=== PATIENT | female | born 2005 | race African-American/Black ===

== ENCOUNTER 2024-06-08 18:25 | Emergency (ER) | payer BC, SELFPAY ==
--- OUTSIDE RECORDS SUMMARY | 2024-06-08 18:27 | XMS_ITS | Clinical Summary ---
Author Organization [employer] [facility] Address [place], [place] [address] Care Team Providers Care Inpatient Pharmacist Name Role Phone Paige Gavin Primary Care Provider Allergies Active Allergy Reactions Criticality Noted Date Comments Cats (Fur, Dander, Saliva) Runny Nose 7 Medications diclofenac enteric coated (VOLTAREN) 50 mg tabletIndicatio ns:Menstrual cramps Take 1 Tablet (50 mg) by mouth two times daily with meals. Starting 1-2 days before period and through duration of menstrual period for cramps 180 Tablet 4 Active ketorolac (TORADOL) 10 mg tabletIndicatio ns:Menstrual cramps Take 1 Tablet (10 mg) by mouth every 6 hours if needed for Pain. Maximum of 40 mg in 24 hours. 20 Tablet 4 Active ketorolac (TORADOL) 10 mg tabletIndicatio ns:Menstrual cramps Take 1 Tablet (10 mg) by mouth every 6 hours if needed for Pain. Maximum of 40 mg in 24 hours. 20 Tablet 4 05/11/20 24 Discontinu ed(Reorder (E-cancel not sent)) Active Problems Problem Noted Date Diagnosed Date Excoriation (skin-picking) disorder 12/23/2016 MDD (major depressive disorder), severe 10/13/19 17 PIPPA (generalized anxiety disorder) 10/12/2016 Molluscum contagiosum 02/13/2007 Encounters Date Type Department Care Team Description 06/08/2024 Nurse Triage [facility] [address] [place] [address] Paige Gavin PA Headache; Lightheaded; Blurred Vision 06/07/2024 11:30 AM SERVER SYSTEMS ADMINISTRATOR Office [facility] [address] [facility] [place] [address] Felipa Nolan [facility] Hearing Problem (Hearing test) 06/07/2024 Travel 06/01/2024 9:50 AM SERVER SYSTEMS ADMINISTRATOR Office Visit [facility] [address] [place] [address] Paige Gavin PA Ear Problem (L ear - been flying a lot and ears pop on plane - L ear now is more sensitive and feels more muffled than R does); Throat Problem (Spot in throat on R side is sore . Scratching, started when she had in 2 years ago) 06/01/2024 Travel 05/15/2024 7:45 AM SERVER SYSTEMS ADMINISTRATOR Nurse/Clinic Staff Only [facility] [address] [place] [address] Immunization/Injecti on; Immunization/Injecti on 05/15/2024 Travel 05/11/2024 Refill [facility] [address] [place] [address] Paige Gavin PA Refill Request (Ketorolac (TORADOL) 10 mg tablet) from Last 3 Months Immunizations Name Administration Dates Next Due AMB INFLUENZA, IIV4 (AGE=>6M OS) MDV (Flu Clinic Only) 02/21/2018 AMB Influenza, IIV3 (Age >=3 years) Preserve Free (Flu Clinic Only) 03/15/2011 AMB Influenza, IIV3 (Age >=3 years)(Flu Clinic Only) 02/13/2013,03/29/2008 AMB Influenza, IIV4 PF (=>6 mos Flulaval,Fluzone Fluarix)(Flu Clinic Only) 02/06/2020,03/06/2019,02/10/2016 DTaP 04/30/2008,08/18/2004 [id number] (Pediarix) 2003,2003,0 2003 HIB PRP-OMP (PedvaxHIB) 08/18/2004,2003, HPV 9 (Gardasil 9) 05/11/2018,11/04/2017 Hepatitis A (Peds) 08/06/2014,02/06/2014 INFLUENZA, IIV3 PF (AGE >= 6 MO) 05/15/2024 Inactivated Polio Vaccine 04/30/2008 Influenza A (H1N1), Inactivated 04/21/2009 Influenza, IIV3 (Age >=3 years) 01/10/20 12,03/17/2010,04/03/2007,05/04,04/01/2005,03/16/2004 Influenza, IIV4 03/24/2022,,02/17/2017,02/11 Influenza, Injectable, Mdck, Quadrivalent, W/preservative 03/22/2023 Influenza,LAIV4 Live Intrana melinda (Flumist) 02/06/2014 MENINGOCOCCAL VACCINE 2 VIAL 2MO-55YO (MENVEO) 11/18/2021,01/20/2021,02/11/2015 MMR 04/30/2008,06/08/2004 Pneumococcal conj 7-Valent (Prevnar 7) 0 08/18/2004,2003,2003,06/25 Tdap 02/11/2015 Typhoid (injectable) 04/16/2022 Varicella Vaccine 04/30/2008,06/08/2004 Yellow Fever 04/16/2022 Family History Relation Name Status Comments Father Alive Mother Alive Sister Alive Social History Tobacco Use Types Packs/Day Years Used Date Smoking Tobacco: Never Smokeless Tobacco: Never Tobacco Cessation:Counseling Given: Yes Alcohol Use Standard Drinks/Week Comments No 0 (1 standard drink = 0.6 oz pur e alcohol) PHQ-2 Answer Date Recorded PHQ-2 TOTAL SCORE 0 09/06/2023 Social Connections Answer Date Recorded Do you often feel lonely or isolated from those around you? 0 09/06/2023 Financial Resource Strain Answer Date R ecorded Difficulty of Paying Living Expenses 3 09/06/2023 Difficulty of Paying Living Expenses Not on file 09/06/2023 Food Insecurity Answer Date Recorded Do you worry your food will run out before you are able to buy more? 1 09/06/2023 Transportation Needs Answer Date Record ed Does lack of transportation keep you from medica l appointments? 1 09/06/2023 Does lack of transportation keep you from work, meetings or getting things that you need? 1 09/06/2023 Housing Stability Answer Date Recorded What is your housing situation today? 1 09/06/2023 Utilities Answer Date Recorded Do you have trouble paying f or utilities (for example, heat, electricity, water, phone)? 1 09/06/2023 Comments No Sex and Gender Information Value Date Recorded Sex Assigned at Not on file Legal Sex Female 5:51 AM SERVER SYSTEMS ADMINISTRATOR Gender Identity Not on file Sexual Orientation Not on file Obstetrics History Last Filed Vital Signs Vital Sign Reading Time Taken Comments Blood Pressure 100/63 06/01/2024 10:00 AM SERVER SYSTEMS ADMINISTRATOR Pulse 88 06/01/2024 10:00 AM SERVER SYSTEMS ADMINISTRATOR Temperature 37.1 C (98.7 F) 04/13/2019 10:50 AM SERVER SYSTEMS ADMINISTRATOR Respiratory Rate - - Oxygen Saturation 100% 04/16/2022 9:28 AM SERVER SYSTEMS ADMINISTRATOR Inhaled Oxygen Concentration - - Weight 64 kg (141 lb) 06/01/2024 10:00 AM SERVER SYSTEMS ADMINISTRATOR Height 167.6 cm (5' 6) 09/06/2023 8:58 AM CDT Body Mass Index - - Plan of Treatment Upcoming Encounters Date Type Department Care Team (Late st Contact Info) Description 06/27/2024 4:00 PM SERVER SYSTEMS ADMINISTRATOR Office Visit [facility] [address] [place] [address] Beulah Yap PA [address] [place] [address] Health Maintenance Due Date Last Done Comments COVID-19 vaccine series ( season) 2024 03/24/2022, 05/14/2021, 09/24/2020, Additional history exists Pap test for age 21-65 2024 BMI (ht and wt on same day) for age 18+ 09/05/2024 09/06/2023, 12/07/2022, 04/16/2022, Additional history exists Depression screening for age 12+ 09/05/2024 09/06/2023, 12/07/2022, 11/18/2021, Additional history exists Tetanus booster 02/11/2025 02/11/2015 Pneumococcal series for age 6-49 Aged Out 08/18/2004, 2003, 2003, Additional history exists No longer eligible based on patient's age to complete this topic Tdap Completed 02/11/2015 HPV series for age 9-26 Completed 05/11/2018, 11/04 Meningococcal series for age 11-21 Completed 11/18/2021, 01/20/2021, 02/11/2015 HIV for age 15-65 Completed 12/07/2022 Hepatitis C screening for age 18-79 Completed 12/07/2022 Influenza for age 9-49 Completed , 03/22/2023, 03/24/2022, Additional history exists Procedures Procedure Name Priority Date/Time Associated Diagnosis Comments LC HIV-1/O/2, 4TH GENERATION Routine 12/07/2022 10:32 AM CDT Screening for HIV (human immunodeficiency virus) LC HCV ANTIBODY RFX TO QUANT PCR Routine 12/07/2022 10:32 AM CDT Need for hepatitis C screening test from Last 3 Months or Most Recently Relevant to Health Maintenance Results * LC HCV ANTIBODY RFX TO QUANT PCR (12/07/2022 10:32 AM CDT) HCV Ab Non Reactive Non Reactive 12/09/2022 1:09 PM CDT [facility] Blood BLOOD SPECIMEN / Unknown Venipuncture / Unknown 12/07/2022 10:32 AM CDT 12/07/2022 10:[address] [facility] ([facility]) - 12/09/2022 1:09 PM CDT Performed at: [address] [place] [id number] Resources Representative: Rishabh Washington MD, Phone: [phone] Paige [facility] Final R esult Performing Organization Address City/[facility] Co de Phone Number [facility] ([facility]) [address] [place] [address] * LC HIV-1/O/2, 4TH GENERATION (12/07/2022 10:32 AM CDT) [facility] HIV Scr 4th Gen Non Reactive Non Reactive 12/09/2022 10:[address] [facility] ([facility]) Comment: HIV Negative HIV-1/HIV-2 antibodies and HIV-1 p24 antigen were NOT detected. There is no laboratory evidence of HIV infection. Blood BLOOD SPECIMEN / Unknown Venipuncture / Unknown 12/07/2022 10:32 AM CDT 12/07/2022 10:[address] [facility] ([facility]) - 12/09/2022 10:06 PM CDT Performed at: [address] [place] [address] [id number] Resources Representative: Rishabh Washington MD, Phone: [phone] Pa[facility] Final R esult Performing Organization Address [facility] Co de Phone Number [facility] ([facility]) [address] [place] [address] from Last 3 Months or Most Recently Relevant to Health Maintenance Insurance [place] [id number] [place] [id number] Care Teams Inpatient Pharmacist Relationship Specialty Start Date End Date Paige Gavin PA [address] [address] PCP - General Family Practice 04/28/15
[2024-06-08 18:40] VITALS: BP 117/69; PULSE 104; RESP 20; TEMP 37.1; O2SAT 96; BMI 23.0
--- NOTE | 2024-06-08 19:36 | ED.GENADULT ---
HPI - General Adult General Chief complaint: Headache/Migraine Stated complaint: Headache, had Flu last week, dizziness Time Seen by Provider: 06/08/24 19:27 Source: patient Mode of arrival: ambulatory Limitations: no limitations History of Present Illness HPI narrative: Patient is a 19-year-old female sent over from the urgent care for not feeling well. Patient had influenza last week with chills, body aches and vomiting. This has resolved but she has not gotten back to normal. She complains of a daily headache, fatigue feeling weak and lightheaded. She denies any changes in her vision, changes in her hearing. She has not been vomiting. She states that her appetite is slowly getting back to normal. She states that she is still having some diarrhea which and loose stools. She denies any skin rashes. No more fevers or chills. But she is concerned that she just generalized does not feel well she does not have a history of headaches. She denies any focal neurologic deficits. She is not on control. She does take Toradol p.r.n. for menstrual cramping. She denies recent syncope. She had an episode today where her she started seeing spots in her vision and she had to sit down and this resolved. Related Data Home Medications ?Medication ?Instructions ?Recorded ?Confirmed diclofenac sodium 50 mg 50 mg PO BID 04/15/23 06/08/24 tablet,delayed release ketorolac 10 mg tablet 10 mg PO Q8H 06/08/24 06/08/24 Allergies Allergy/AdvReac Type Severity Reaction Status Date / Time No Known Drug Allergies Allergy Verified 06/08/24 18:43 Review of Systems Status of ROS: Reports: 10 or more systems reviewed and unremarkable except as noted in History and below [facility] Medical History (Updated 06/08/24 @ 20:23 by Katie Guajardo MD) No significant past medical history Surgical History (Updated 06/08/24 @ 20:00 by James Merida RN) No significant past surgical history Social History Smoking Status: Never smoker Second hand tobacco smoke exposure: No How often do you have a drink containing alcohol: never AUDIT-C Alcohol total score: 0 Non-prescribed substance use: denies use Exam Narrative: Exam Narrative: Well-nourished well-developed patient in no acute distress. Alert and oriented. Answers questions appropriately. Mood and affect are appropriate. Thoughts are goal oriented and rational. No tangential or magical thinking noted. Patient speaks in full sentences without needing to catch her breath. Patient does not appear ill or toxic. Speech is not slurred or pressured. HEENT: Normocephalic atraumatic. Pupils are equally round reactive to light. Extraocular muscles are intact. Conjunctivae are moist without any icterus noted. Moist mucous membranes. Posterior pharynx is normal. Neck is soft without any lymphadenopathy or thyromegaly. No masses are appreciated. Cardiovascular: Heart is mildly tachycardic with a pulse of 104, regular rhythm, no murmurs. Lungs: Clear to auscultation bilaterally no wheezes rhonchi or rales are appreciated. Patient takes deep breaths without any discomfort. Abdomen: Soft and nontender nondistended with normal bowel sounds. Extremities: Bilateral lower extremities are without edema. Skin: Well perfused without any obvious rashes. Strength is 5/5 of the upper and lower extremities. Cranial nerves 3-12 are grossly normal. There is no nystagmus either horizontally or vertically. Gait is normal. Const: Vital Signs, click to edit/add: Vital Signs - 24 hr 06/08/24 18:40 06/08/24 19:40 06/08/24 19:45 Temperature 98.7 F 98.7 F Pulse Rate [Pulse Oximeter] 104 H Respiratory Rate 20 Blood Pressure [Ri ght Upper Arm] 117/69 Pulse Oximetry 96 96 Oxygen Delivery Me thod Room Air 06/08/24 19:58 Temperature 98.7 F Pulse Rate [Pulse Oximeter] 90 Respiratory Rate 20 Blood Pressure [Ri ght Upper Arm] 122/76 Pulse Oximetry 96 Oxygen Delivery Me thod Room Air Course Course ED Course: At this point, appears that the patient is likely not fully recovered from influenza. Appears to be slightly dehydrated. IV established and patient received a L of normal saline and IV Toradol. After fluid hydration patient's pulse came down to 90. She felt significantly better after treatment. Vital Signs Vital signs: Initial Vital Signs Temperature 98.7 F 06/08/24 18:40 Temperature Source Temporal Artery Scan 06/08/24 18:40 Pulse Rate 104 H 06/08/24 18:40 Pulse Rhythm Regular 06/08/24 18:40 Pulse Strength 3+ Normal 06/08/24 18:40 Respiratory Rate 20 06/08/24 18:40 Blood Pressure 117/69 06/08/24 18:40 Blood Pressure Mean 85 06/08/24 18:40 Blood Pressure Position Sitting 06/08/24 18:40 Pulse Oximetry 96 06/08/24 18:40 Oxygen Delivery Method Room Air 06/08/24 18:40 Vital Signs Temperature 98.7 F 06/08/24 18:40 Pulse Rate 104 H 06/08/24 18:40 Respiratory Rate 20 06/08/24 18:40 Blood Pressure 117/69 06/08/24 18:40 Pulse Oximetry 96 06/08/24 18:40 Oxygen Delivery Method Room Air 06/08/24 18:40 Temperature 98.7 F 06/08/24 19:58 Pulse Rate 90 06/08/24 19:58 Respiratory Rate 06/08/24 19:58 Blood Pressure 122/76 06/08/24 19:58 Pulse Oximetry 96 06/08/24 19:58 Oxygen Delivery Method Room Air 06/08/24 19:58 Medications Administered Medications: Generic Name Dose Route Start Last Admin Trade Name Freq PRN Reason Stop Dose Admin Sodium Chloride 1,000 mls @ 1,000 mls/hr 06/08/24 19:30 06/08/24 19:40 0.9 % Sodium Chloride 1000 Ml IV 06/08/24 20:29 1,000 mls/hr .Q1H KELLY Administration Discontinued Medications Generic Name Dose Route Start Last Admin Trade Name Freq PRN Reason Stop Dose Admin Ketorolac Tromethamine 30 mg 06/08/24 19:35 06/08/24 19:40 Ketorolac 30 Mg/Ml Inj IVP 06/08/24 19:36 30 mg ONCE ONE Administration Medical Decision Making MDM Narrative Medical decision making narrative: 19-year-old female with dehydration, headache status post influenza. We discussed symptomatic treatment and reasons to follow-up. Discharge Plan Discharge Clinical Impression: Headache, Dehydration Patient Disposition: Home, Self-Care Condition: Improved Additional Instructions: Make sure to stay well hydrated, eat nutritious meals and rest as much as possible over the next few days. If you develop a fever, vomiting or worsening symptoms then you should return to the emergency room. Prescriptions: No Action diclofenac sodium 50 mg tablet,delayed release (DR/EC) 50 mg PO BID ketorolac 10 mg tablet 10 mg PO Q8H Follow Up/Referrals: Paige Gavin, PAShannanC [Primary Care Provider] - Stand Alone Forms: [employer] Info Instructions
[2024-06-08 19:40] VITALS: TEMP 37.1
[2024-06-08] MEDS: 0.9 % SODIUM CHLORIDE 1000 ml 1,000 ML IV (19:40)
[2024-06-08] MEDS: KETOROLAC 30 MG/ML inj IVP (19:40)
[2024-06-08 19:45] VITALS: O2SAT 96
[2024-06-08 19:58] VITALS: BP 122/76; PULSE 90; RESP 20; TEMP 37.1; O2SAT 96
--- OUTSIDE RECORDS SUMMARY | 2024-06-08 20:02 | XMS_ITS | Clinical Summary ---
Author Organization [employer] Address [place], [place] [address] Care Team Providers Care Padder Cushion Name Role Phone Paige Gavin Primary Care [...] Department Care Team Description 06/08/2024 Nurse Triage [facility] [address] [place] [address] Paige Gavin PA Headache; Lightheaded; Blurred Vision 06/07/2024 11:30 AM CONTROL PANEL TESTER Office [facility] [address] [facility] [place] [address] Felipa Nolan [facility] Hearing Problem (Hearing test) 06/07/2024 Travel 06/01/2024 9:50 AM CONTROL PANEL TESTER Office Visit [facility] [address] [place] [address] Paige Gavin PA Ear Problem (L ear - been flying a lot and ears pop on plane - L ear now is more sensitive and feels more muffled than R does); Throat Problem (Spot in throat on R side is sore . Scratching, started when she had in 2 years ago) 06/01/2024 Travel 05/15/2024 7:45 AM CONTROL PANEL TESTER Nurse/Clinic Staff Only [facility] [address] [place] [address] Immunization/Injecti on; Immunization/Injecti on 05/15/2024 Travel 05/11/2024 Refill [facility] [address] [place] [address] Paige Gavin PA Refill Request (Ketorolac (TORADOL) [...] Flulaval,Fluzone Fluarix)(Flu Clinic Only) 02/06/2020,03/06/2019,02/10/2016 DTaP 04/30/2008,08/18/2004 [id number] (Pediarix) 2003,2003,0 2003 HIB PRP-OMP (PedvaxHIB) 08/18/2004,2003, [...] on file Legal Sex Female 5:51 AM CONTROL PANEL TESTER Gender Identity Not on file Sexual Orientation Not on file Obstetrics History Last Filed Vital Signs Vital Sign Reading Time Taken Comments Blood Pressure 100/63 06/01/2024 10:00 AM CONTROL PANEL TESTER Pulse 88 06/01/2024 10:00 AM CONTROL PANEL TESTER Temperature 37.1 C (98.7 F) 04/13/2019 10:50 AM CONTROL PANEL TESTER Respiratory Rate - - Oxygen Saturation 100% 04/16/2022 9:28 AM CONTROL PANEL TESTER Inhaled Oxygen Concentration - - Weight 64 kg (141 lb) 06/01/2024 10:00 AM CONTROL PANEL TESTER Height 167.6 cm (5' 6) 09/06/2023 8:58 AM CDT Body Mass Index - - Plan of Treatment Upcoming Encounters Date Type Department Care Team (Late st Contact Info) Description 06/27/2024 4:00 PM CONTROL PANEL TESTER Office Visit [facility] [address] [place] [address] Beulah Yap PA [address] [place] [address] Health Maintenance Due Date Last Done Comments [...] Reactive Non Reactive 12/09/2022 1:09 PM CDT [facility] Blood BLOOD SPECIMEN / Unknown Venipuncture / Unknown 12/07/2022 10:32 AM CDT 12/07/2022 10:36 AM CDT Narrative [facility] ([facility]) - 12/09/2022 1:09 PM CDT Performed at: [address] [place] [id number] [employer] Sales Representative: Rishabh Washington MD, Phone: [phone] [facility] Final R esult Performing Organization Address City/[facility] Co de Phone Number [facility] ([facility]) [address] [place] [address] * LC HIV-1/O/2, 4TH GENERATION (12/07/2022 10:32 AM CDT) [facility] HIV Scr 4th Gen Non Reactive Non Reactive 12/09/2022 10:06 PM CDT [facility] ([facility]) Comment: HIV Negative HIV-1/HIV-2 antibodies and HIV-1 p24 antigen were NOT detected. There is no laboratory evidence of HIV infection. Blood BLOOD SPECIMEN / Unknown Venipuncture / Unknown 12/07/2022 10:32 AM CDT 12/07/2022 10:36 AM CDT Narrative [facility] ([facility]) - 12/09/2022 10:06 PM CDT Performed at: [address] [place] [id number] [employer] Sales Representative: Rishabh Washington MD, Phone: [phone] Paige [facility] Final R esult Performing Organization Address [facility] Co de Phone Number [facility] ([facility]) [address] [place] [address] from Last 3 Months or Most Recently Relevant to Health Maintenance Insurance [place] [id number] [place] [id number] Care Teams Padder Cushion Relationship Specialty Start Date End Date Paige Gavin PA [address] [address] PCP - General Family Practice 04/28/15
[2024-06-08 21:00] VITALS: BP 122/76; PULSE 90; RESP 20; TEMP 37.1
[2024-06-08 21:02] VITALS: TEMP 37.1
== END 2024-06-08 21:00 | disposition home or self-care (01) ==
PROVIDERS: Emergency Provider Family Medicine; PCP Physician Assistant Medical
DX: R51.9 Headache, unspecified (principal); E86.0 Dehydration
CPT/HCPCS: 94761; 96361; 96374; 99284; J1885; J7030